=== PATIENT | male | born 1970 | race Caucasian/White ===

== ENCOUNTER 2017-05-03 15:56 | Emergency (ER) | payer SELFPAY ==
[~2017-05-03] VITALS: Ht 167.6 cm; Wt 111.9 kg
[2017-05-03 16:16] VITALS: BP 136/86
== END 2017-05-03 17:53 | disposition home or self-care (01) ==
LOC: ED 17:47
DX: B07.8 Other viral warts (principal); K42.9 Umbilical hernia without obstruction or gangrene
CPT/HCPCS: 99281

== ENCOUNTER → 2017-06-29 | Outpatient (CLI) | payer MEDICAID, OTHER | END | disposition home or self-care (01) | LOC: CFH 07:59 | PROVIDERS: ATTEND Nurse Practitioner Family | DX: K43.9 Ventral hernia without obstruction or gangrene (principal) | CPT/HCPCS: 76705 ==

== ENCOUNTER 2019-10-17 06:56 | Emergency (ER) | payer MEDICAID ==
[~2019-10-17] VITALS: Ht 167.6 cm; Wt 111.3 kg
--- NOTE | 2019-10-17 07:07 | NUR ---
PT AMBULATED WITH A SMOOTH AND STEADY GAIT BACK TO THE ROOM, SITTING IN CHAIR, NELIDA MULTANI AT FOR EVAL AND TO DISCUSS POC. PT P/W/D, FCS NO SOB, NAD, RESP WNL, WCTM.
[2019-10-17] MEDS ORDERED: TRANEXAMIC ACID 100 MG/ML, 10ML ONE (07:29)
[2019-10-17] MEDS ORDERED: TRANEXAMIC ACID 100 MG/ML, 10ML TP ONE (07:30)
[2019-10-17 07:36] LABS: BASOPHILS # (AUTO) 0.02 x10^3/uL (0-0.1); BASOPHILS % (AUTO) 0 % (0-1); EOSINOPHILS # (AUTO) 0.18 x10^3/uL (0-0.4); EOSINOPHILS % (AUTO) 4 % (1-7); LYMPHOCYTES # (AUTO) 1.37 x10^3/uL (1-3.4); LYMPHOCYTES % (AUTO) 28 % (22-44); MD NO; MEAN CORPUSCULAR HEMOGLOBIN 28.7 pg (27.5-34.5); MEAN CORPUSCULAR HGB CONC 32.3 g/dL (33.2-36.2); MEAN CORPUSCULAR VOLUME 88.9 fL (81-97); MONOCYTES # (AUTO) 0.42 x10^3/uL (0.2-0.8); MONOCYTES % (AUTO) 9 % (2-9); NEUTROPHILS # (AUTO) 2.92 x10^3/uL (1.8-6.8); NEUTROPHILS % (AUTO) 60 % (42-75); PLATELET COUNT 202 x10^3/uL (130-400); RED CELL DISTRIBUTION WIDTH 14.7 % (9.4-14.8)
--- NOTE | 2019-10-17 08:03 | NUR ---
PT RESTING IN CHAIR, NAD, EPISTAXIS OF LEFT NARE, APPLIED EPISTAXIS CLAMP, PT RESP WNL, P/W/D, WAITING FOR BP TO LOWER AT GIVING MEDICATION PER MAR, WCTM.
--- NOTE | 2019-10-17 08:26 | NUR ---
NELIDA MULTANI ADMINISTERED MEDICATION FOR EPISTAXIS, PT GIVEN SPIT BACK, VSS, NAD, SKIN COLOR WNL WARM AND DRY, WCTM.
--- NOTE | 2019-10-17 09:35 | NUR ---
PT SITTING IN CHAIR, EYES CLOSED, NAD, SKIN COLOR WNL WARM AND DRY, RESP WNL, WCTM
[2019-10-17 09:56] VITALS: BP 160/94
--- NOTE | 2019-10-17 09:58 | NUR ---
Patient given discharge instructions and they have confirmed that they understand the instructions. Patient ambulatory with steady gait. NAD, SKIN COLOR WNL WARM AND DRY, RESP WNL
== END 2019-10-17 10:00 | disposition home or self-care (01) ==
LOC: ED 07:33
DX: R04.0 Epistaxis (principal); I10 Essential (primary) hypertension
CPT/HCPCS: 30901; 36415; 85025; 99284

== ENCOUNTER 2020-02-24 12:38 | Emergency (ER) | payer MEDICAID ==
[~2020-02-24] VITALS: Ht 167.6 cm; Wt 105.1 kg
[2020-02-24] MEDS ORDERED: KETAMINE 10 MG/ML, 20ML IV STA (13:48)
[2020-02-24] MEDS ORDERED: LORazepam 1MG TABLET ONE (13:53)
[2020-02-24] MEDS ORDERED: SODIUM CHLORIDE 0.9% 1,000ML IVBOLUS ONE (14:00)
[2020-02-24] MEDS ORDERED: SODIUM CHLORIDE FLUSH 10ML SYR IVF ONE (14:00)
[2020-02-24] MEDS ORDERED: LORazepam 1MG TABLET PO ONE (14:00)
[2020-02-24] MEDS ORDERED: THIAMINE 100 MG in SODIUM CHLORIDE 0.9% 50 ML IVPB ONE (14:00)
--- NOTE | 2020-02-24 14:00 | NUR ---
PT STEADILY AMBULATED TO SHOWER WITH DIRECTOR INFORMATICS BRYAN. PT HAS NOT HAD SHOWER IN AWHILE AND TO AID IN WOUND DEBRIDEMENT. PT IS MILDLY TREMULOUS AT REST, PARTIALLY MEDICATED PER EMAR. AWAITING RETURN TO ROOM.
--- NOTE | 2020-02-24 14:00 | NUR ---
Nic pascual in ED - 02/24/20 at 1412 by RADHA PT IN [place] WITH BRYAN ARANGO ED
[2020-02-24] MEDS ORDERED: KETAMINE 10 MG/ML, 20ML ONE (14:23)
[2020-02-24] MEDS ORDERED: DIPH,PERTUSS(ACELL),TET VAC/PF 0.5 ML IM-VACC ONE ×2 (15:00→16:30)
--- NOTE | 2020-02-24 15:00 | NUR ---
PT SITTING ON GURNEY ON CELL PHONE. NAD. PT MEDICATED PER EMAR, REPORTS IMPROVED PAIN. NO NEEDS AT THIS TIME. FALL PRECAUTIONS IN PLACE, CALL LIGHT WITHIN REACH.
[2020-02-24 15:10] LABS: BASOPHILS # (AUTO) 0.03 x10^3/uL (0-0.1); BASOPHILS % (AUTO) 0 % (0-1); EOSINOPHILS # (AUTO) 0.17 x10^3/uL (0-0.4); EOSINOPHILS % (AUTO) 2 % (1-7); LYMPHOCYTES # (AUTO) 1.22 x10^3/uL (1-3.4); LYMPHOCYTES % (AUTO) 12 % (22-44); MD NO; MEAN CORPUSCULAR HEMOGLOBIN 28.8 pg (27.5-34.5); MEAN CORPUSCULAR HGB CONC 32.4 g/dL (33.2-36.2); MEAN CORPUSCULAR VOLUME 88.8 fL (81-97); MEAN PLATELET VOLUME 9.2 fL (7.4-10.4); MONOCYTES # (AUTO) 0.44 x10^3/uL (0.2-0.8); MONOCYTES % (AUTO) 5 % (2-9); NEUTROPHILS # (AUTO) 7.96 x10^3/uL (1.8-6.8); NEUTROPHILS % (AUTO) 81 % (42-75); PLATELET COUNT 203 x10^3/uL (130-400); RED BLOOD COUNT 4.97 x10^6/uL (4.38-5.82)
[2020-02-24 15:21] LABS: ALBUMIN 3.3 g/dL (3.4-5.0); ANION GAP 9 mmol/L (5-15); CALCIUM 9.8 mg/dL (8.5-10.1); CHLORIDE 104 mmol/L (98-107)
[2020-02-24 15:37] LABS: ALANINE AMINOTRANSFERASE 104 U/L (12-78); ALKALINE PHOSPHATASE 219 U/L (45-117); CREATININE 0.73 mg/dL (0.7-1.3); TOTAL PROTEIN 8.5 g/dL (6.4-8.2)
--- NOTE | 2020-02-24 16:05 | NUR ---
PT SITTING UPRIGHT ON [employer] WASTCHING TV. NAD, VSS. PT REPORTS DECREASE IN PAIN AND HAS NO ADDITIONAL NEEDS AT THIS TIME. CALL LIGHT WITHIN REACH, FALL PRECAUTIONS IN PLACE.
--- NOTE | 2020-02-24 16:39 | NUR ---
LOOSE DRESSING APPLIED TO ABRASIONS ON RIGHT BACK. PT TOLERATED WELL.
--- NOTE | 2020-02-24 17:02 | NUR ---
PT SITTING ON BED WATCH TV. NAD, VSS. PILLOW PROVIDED. PT REPORTS NO PAIN. NO OTHER NEEDS AT THIS TIME. CALL LIGHT WITHIN REACH, FALL PRECAUTIONS IN PLACE.
[2020-02-24 17:10] VITALS: BP 152/104
--- NOTE | 2020-02-24 17:22 | NUR ---
Patient/Caregiver given discharge instructions and they have confirmed that they understand the instructions. Patient ambulatory with steady gait.
== END 2020-02-24 17:24 | disposition home or self-care (01) ==
LOC: ED 13:42
DX: S20.411A Abrasion of right back wall of thorax, initial encounter (principal); F10.239 Alcohol dependence with withdrawal, unspecified; I10 Essential (primary) hypertension; Y90.0 Blood alcohol level of less than 20 mg/100 ml; X58.XXXA Exposure to other specified factors, initial encounter; Y93.9 Activity, unspecified; Y92.89 Other specified places as the place of occurrence of the external cause; Y99.8 Other external cause status
CPT/HCPCS: 36415; 71046; 72072; 72110; 80053; 80307; 85025; 90471; 90715; 96361; 96365; 96375; 99284; J3411; J7030

== ENCOUNTER 2020-09-12 08:52 | Emergency (ER) | payer MEDICAID ==
[~2020-09-12] VITALS: Ht 167.6 cm; Wt 109.3 kg
--- NOTE | 2020-09-12 09:44 | NUR ---
PT AMBULATORY TO ROOM 13 W/ C/O LESIONS TO HANDS AND FACE. PT DENIES ANY LESIONS TO PENIS AFTER PT STATES HE DID THINGS WITH QUESTIONABLE WOMEN. PT NOTED TO HAVE LESIONS TO FOREHEAD, BILAT CHEEKS, AND BILAT HANDS. PT RESTING ON ANGELICA. BUCK.
[2020-09-12 10:14] LABS: BASOPHILS % (AUTO) 0 % (0-1); EOSINOPHILS % (AUTO) 0 % (1-7); LYMPHOCYTES % (AUTO) 18 % (22-44); MEAN CORPUSCULAR HEMOGLOBIN 28.9 pg (27.5-34.5); MEAN CORPUSCULAR HGB CONC 33.5 g/dL (33.2-36.2); MEAN PLATELET VOLUME 7.9 fL (7.4-10.4); MONOCYTES % (AUTO) 13 % (2-9); NEUTROPHILS % (AUTO) 68 % (42-75); PLATELET COUNT 99 x10^3/uL (130-400); RED BLOOD COUNT 4.84 x10^6/uL (4.38-5.82); RED CELL DISTRIBUTION WIDTH 16.7 % (9.4-14.8)
[2020-09-12 10:18] LABS: INTERNATIONAL NORMALIZED RATIO 1.19 (0.93-1.1); PROTHROMBIN TIME 12.7 Seconds (9.6-11.5)
[2020-09-12 10:20] LABS: ALBUMIN 3.4 g/dL (3.4-5.0); ANION GAP 9 mmol/L (5-15); CHLORIDE 105 mmol/L (98-107)
[2020-09-12 10:24] LABS: ALANINE AMINOTRANSFERASE 78 U/L (12-78); ALKALINE PHOSPHATASE 169 U/L (45-117); BILIRUBIN,TOTAL 1.6 mg/dL (0.2-1.0); CREATININE 0.71 mg/dL (0.7-1.3); TOTAL PROTEIN 8.3 g/dL (6.4-8.2)
--- NOTE | 2020-09-12 10:46 | NUR ---
PT RESTING ON GURNEY. NADN. [place].
[2020-09-12 10:48] VITALS: BP 136/74
[2020-09-12 10:55] LABS: MD SCAN
== END 2020-09-12 11:32 | disposition home or self-care (01) ==
LOC: ED 09:38
DX: L02.01 Cutaneous abscess of face (principal); L02.511 Cutaneous abscess of right hand; R79.1 Abnormal coagulation profile; I10 Essential (primary) hypertension
CPT/HCPCS: 36415; 80053; 85025; 85610; 99283

== ENCOUNTER 2021-01-15 08:39 | Emergency (ER) | payer MEDICAID ==
[~2021-01-15] VITALS: Ht 167.6 cm; Wt 102.7 kg
[2021-01-15 08:42] VITALS: BP 170/107
--- NOTE | 2021-01-15 09:43 | NUR ---
REHAB OFFICE COORDINATOR; PT TO ROOM FROM CASTRO ECKERT
[2021-01-15] MEDS ORDERED: HYDROcodone/APAP 5/325 TABLET PO ONE (10:30)
[2021-01-15] MEDS ORDERED: KETOROLAC 30 MG/1 ML IM ONE (10:30)
[2021-01-15] MEDS ORDERED: KETOROLAC 30 MG/1 ML ONE (10:37)
[2021-01-15] MEDS ORDERED: HYDROcodone/APAP 5/325 TABLET ONE (10:38)
== END 2021-01-15 12:07 | disposition home or self-care (01) ==
LOC: ED 12:01
DX: S22.41XA Multiple fractures of ribs, right side, initial encounter for closed fracture (principal); I10 Essential (primary) hypertension; Y08.89XA Assault by other specified means, initial encounter; Y93.89 Activity, other specified; Y92.410 Unspecified street and highway as the place of occurrence of the external cause; Y99.8 Other external cause status
CPT/HCPCS: 71101; 96372; 99283; J1885